=== PATIENT | female | born 1945 | race Caucasian/White ===

== ENCOUNTER 2016-12-31 13:24 | Emergency (ER) | payer OTHER, MEDICARE ==
[~2016-12-31] VITALS: Ht 154.9 cm; Wt 74.6 kg
[2016-12-31 13:39] VITALS: BP 157/92; PULSE 88; TEMP 36.5; O2SAT 99; Ht 154.9 cm; Wt 74.6 kg
[2016-12-31] MEDS ORDERED: FRCT/ PO (14:35)
[2016-12-31] MEDS ORDERED: LISI-725 PO (14:35)
[2016-12-31] MEDS ORDERED: PROP20TA67 PO (14:35)
[2016-12-31] MEDS ORDERED: ERGO500037 PO (14:35)
[2016-12-31] MEDS ORDERED: EZET10TA41 PO (14:35)
[2016-12-31] MEDS ORDERED: ALBU18002 (14:36)
--- NOTE | 2016-12-31 14:36 | DIAGNOSTIC IMAGING REPORT ---
L FOOT MIN 3 VIEWS ROUTINE HISTORY: 71 years-old Female L foot pain acute left foot pain status post fall COMPARISON: None available TECHNIQUE: 3 views of the left foot FINDINGS: Mild periarticular osteopenia. Mild degenerative changes of the interphalangeal joints. There is no acute fracture or dislocation identified. Mild dorsal forefoot soft tissue swelling. Negative for opaque foreign body. IMPRESSION: Mild forefoot soft tissue swelling without acute fracture or dislocation. The above report was generated using voice recognition software. It may contain grammatical, syntax or spelling errors. Electronically signed by: Carlos Baker M.D. 12/31/2016 2:34 PM Dictated Date/Time: 12/31/2016 2:33 PM
--- NOTE | 2017-01-01 06:54 | EMERGENCY ROOM VISIT NOTE ---
ED Visit Note First contact with patient: 13:43 Chief Complaint: I hurt my left foot. History of Present Illness: Ms. Thomason is a 71-year-old white female who ambulates into the ED accompanied by female friend complaining of left foot pain. Patient reports approximately 30 minutes ago she was walking and tripped while stepping off a curb injuring her left foot. She is not exactly sure the mechanism of injury. Since the injury she reports she is having pain over the plantar and dorsal aspect of the left foot. Her pain has been constant. She places the majority of her discomfort over the first metatarsal and medial cuneiform bone on the dorsal surface and within the distal plantar arch of the palmar side. She reports she has a mild achiness at rest that becomes sharp with ambulation. She rates her sharp discomfort 8/10. Her pain is nonradiating. Her patient is relieved with nonweight bearing. She denies any associated symptoms including knee pain, lower leg pain, ankle pain, leg weakness/numbness/tingling, previous significant injuries or surgeries. Review of Systems: As noted above in history of present illness. Past Medical History: Hypertension, dyslipidemia. Current Medications: Lisinopril, propanol, Vytorin, Fioricet, vitamin D, albuterol. Allergies to Medications: Patient denies. Social History: Patient is currently retired; she feels safe in her home environment; she denies tobacco use. Physical Examination: Vital Signs: Date Time Temp Pulse Resp B/P (MAP) Pulse Ox O2 Delivery O2 Flow Rate FiO2 12/31/16 13:39 36.5 88 18 157/92 99 Room Air GENERAL: 71-year-old female in mild distress due to pain, nontoxic-appearing, afebrile and hemodynamically stable. NEUROLOGICAL: Awake, alert and oriented to person, place and time. Answering questions appropriately and following commands. Limped gait. Good hand eye coordination. SKIN: Warm, dry and pink. No soft tissue eruptions or trauma noted. LEFT LOWER EXTREMITY: No gross bony deformity. No shortening or malrotation. No tenderness in the hip, knee, lower leg or ankle. Moderate tenderness over the dorsal aspect of the fifth metatarsal without bony deformity or crepitus, the dorsal middle cuneiform tarsal with mild swelling but no bony deformity, crepitus or ecchymosis. There is also moderate tenderness over the plantar surface of the second and third MTP joints. I do not appreciate any bony deformity or crepitus. She has full range of motion with plantar flexion, dorsiflexion and inversion and eversion of the ankle and flexion and extension of all MCP, PIP and DIP joints against resistance. Throughout the foot the skin was warm and pink and capillary refill is brisk. She is able to distinguish light sensations through all dermatomes. ED Course: Patient is assessed as noted above. Patient's medication list was reviewed. Patient was offered pain medication and refused. Left Foot X-Rays: Were read by myself and the radiologist and shows no acute fractures or dislocations. Patient was offered a postop shoe, crutches and/or walker and refused all. Patient was educated about today's findings and instructed on her treatment plan ; she verbalized understanding and agreement with this plan. Clinical Impression: Left foot pain. Disposition: Patient discharged home in stable condition accompanied by female friends; prior to departure she was reassessed and subjectively reported she was pain-free. Plan: Comfort measures including rest, ice and elevation were discussed with the patient. Patient was encouraged to follow-up with her primary care provider if no better in 7-10 days for possible referral to orthopedics. Patient was encouraged to return to an emergency department for worsening/ uncontrolled pain, worsening swelling, foot weakness/numbness/tingling or any new/concerning symptoms.
== END 2016-12-31 15:01 | disposition home or self-care (01) ==
LOC: C.EDB 13:28 → C.EDD 15:01
DX: M79.672 Pain in left foot (principal); W01.0XXA Fall on same level from slipping, tripping and stumbling without subsequent striking against object, initial encounter; Y92.480 Sidewalk as the place of occurrence of the external cause; I10 Essential (primary) hypertension; E78.5 Hyperlipidemia, unspecified; Z79.899 Other long term (current) drug therapy